=== PATIENT | female | born 1950 | race Caucasian/White ===

== ENCOUNTER 2020-08-30 17:26 | Emergency (ER) | payer MEDICARE, OTHER ==
[~2020-08-30 17:26] MED LIST: B COMPLEX WITH1 EACH PO; CBD OIL PO; CLARITIN10 MG PO; EFFEXOR-XR 75 M75 MG PO; MUCINEX 600MG600 MG PO; PERCOCET 5-3251 EACH PO; PROBIOTIC1 EAC1 PO; TUMERIC PO; VITAMIN E400 UNI4 PO; XARELTO10 MG PO; XARELTO2.5 MG PO
== END 2020-08-30 19:12 | disposition home or self-care (01) ==
LOC: FER 17:26
DX: S62.617A Displaced fracture of proximal phalanx of left little finger, initial encounter for closed fracture (principal); S00.83XA Contusion of other part of head, initial encounter; Z88.0 Allergy status to penicillin; Z88.5 Allergy status to narcotic agent; W01.0XXA Fall on same level from slipping, tripping and stumbling without subsequent striking against object, initial encounter; Y92.009 Unspecified place in unspecified non-institutional (private) residence as the place of occurrence of the external cause
CPT/HCPCS: 73130